=== PATIENT | male | born 1965 | race Caucasian/White ===

== ENCOUNTER → 2025-08-12 | Outpatient (CLI) | payer OTHER ==
[2025-08-12 13:28] LABS: APPEARANCE,URINE CLEAR (CLEAR); GLUCOSE, URINE (UA) >=1000 mg/dL (NEGATIVE); LEUKOCYTE ESTERASE ,URINE NEGATIVE Leu/uL (NEGATIVE); NITRATE,URINE NEGATIVE (NEGATIVE); OCCULT BLOOD,URINE NEGATIVE (NEGATIVE)
[2025-08-12 13:29] LABS: ADD UA MICROSCOPIC YES
[2025-08-12 13:35] LABS: ASPARTATE AMINOTRANSFERASE 27.0 U/L (10-37); CREATININE 1.2 mg/dL (0.5-1.3); GLOMERULAR FILTR. RATE CALC 70.0 mL/min (>90); GLUCOSE,RANDOM 132.0 mg/dL (70-105); SODIUM SERUM 139.0 mmol/L (136-145); TOTAL PROTEIN, SERUM 7.3 g/dL (6.0-8.3); UREA NITROGEN, BLOOD 14.0 mg/dL (7-18)
--- NOTE | 2025-08-12 14:07 | EKG ---
[facility] Test Date: 2025-08-12 Test Time: 13:10:24 Pat Name: KM WINTERS Department: [facility] Room: Gender: M [employer] Spr[employer] Installer: [id number] : 1965 Requested By: LATAI DAVIS Order Number: [id number] Reading MD: Measurements Intervals [place] Rate: 61 P: 7 WI: 192 QRS: -9 QRSD: 103 T: -12 QT: 432 QTc: 435 Interpretive Statements Sinus rhythm No previous ECG available for comparison Please click the below link to view image of tracing.
--- NOTE | 2025-08-12 23:20 | HMCSR ---
APPROVED REPORT EXAM: Two-dimensional and M-mode echocardiogram with Doppler and color Doppler. INDICATION ICD: I48.91 E11.9 2D Dimensions RVDd 4.2 cm LVEF(%) 66.3 (>50%) LVED Vol(simp.) 151.0 mL IVSd 1.0 (0.7-1.1cm) FS(%) 37 % LVES Vol(simp.) 63.0 mL LVDd 5.5 (3.8-5.6cm) LA (2D) 4.4 (1.6-4.0cm) LVEF(%, simp.) 58 % PWd 0.8 (0.7-1.1cm) Ao Root(2D) 3.6 (2.0-3.7cm) LA ESV INDEX (BP) 37.34 mL/m2 LVDs 3.5 (2.5-4.0cm) LVOT diam 2.4 (1.8-2.4cm) IVC diam 2.1 cm M-Mode Dimensions EPSS 0.9 cm LA (MM) 4.6 (1.6-4.0cm) Ao Root(MM) 3.0 (2.0-3.7cm) Aortic Valve AoV Vmax 1.2 m/s Ao Peak GR 5.9 mmHg LVOT Vmax 1.0 m/s AoV VTI 0.3 m Ao Mean GR 3.6 mmHg LVOT VTI 0.26 m ESTRELLITA (VMAX) 3.73 cm2 ESTRELLITA (VTI) 4.0 cm2 Mitral Valve MV E Vmax 71.5 cm/s DECEL Time 223 ms MV A Vmax 54.3 cm/s P 1/2 T 42 ms E/A ratio 1.3 MVA (PHT) 5.2 cm2 TDI E/E' Medial 11.6 Medial E' Peak V 6.14 cm/s Pulmonary Valve PV Vmax 1.3 m/s PV VTI 0.28 m PV Mean GR 3.5 mmHg PV Peak GR 6.3 mmHg Left Ventricle The left ventricle is normal size. No regional wall motion abnormalities noted. Mild concentric left ventricular hypertrophy. Left ventricular systolic function is normal, estimated LVEF is 55 to 60%. The left ventricular diastolic function is normal. Right Ventricle The right ventricle is normal size. The right ventricular systolic function is normal. Atria The left atrium is mildly dilated, 37 mL/m. The right atrium size is normal. Aortic Valve The aortic valve is normal in structure. No aortic regurgitation is present. There is no aortic valvular stenosis. Mitral Valve The mitral valve is normal in structure. Trace mitral regurgitation. There is no mitral valve stenosis. Tricuspid Valve The tricuspid valve is normal in structure. Trace tricuspid regurgitation. RVSP is normal. Pulmonic Valve Pulmonic valve is not well visualized. Great Vessels The aortic root is normal in size. The IVC is normal in size and collapses >50% with inspiration. Pericardium There is no pericardial effusion. Conclusion Mild concentric left ventricular hypertrophy. No regional wall motion abnormalities noted. Left ventricular systolic function is normal, estimated LVEF is 55 to 60%. The left ventricular diastolic function is normal. Trace mitral regurgitation. Trace tricuspid regurgitation. PASP is normal. There is no pericardial effusion.
== END | disposition home or self-care (01) ==
LOC: RAH 12:23
PROVIDERS: ATTEND Chiropractor
DX: I48.91 Unspecified atrial fibrillation (principal); I51.7 Cardiomegaly; E11.9 Type 2 diabetes mellitus without complications
CPT/HCPCS: 36415; 80053; 81001; 93005; 93306